=== PATIENT | male | born 1995 ===

== ENCOUNTER 2018-01-05 12:58 | Emergency (ER) | payer OTHER ==
--- NOTE | 2018-01-05 13:41 | UC ---
Throat Pain/Nasal Kel HPI - HPI Summary HPI Summary: The patient is a 22-year-old male that presents here with a five -day history headache and malaise...now with of sore throat and fever. States he was recently suspects exposed to strep throat. - History of Current Complaint Chief Complaint: UCRespiratory Stated Complaint: SORE THROAT Time Seen by Provider: 01/05/18 13:28 Hx Obtained From: Patient Onset/Duration: Gradual Onset, Lasting Days Severity: Moderate Pain Intensity: 6 Pain Scale Used: 0-10 Numeric Cough: None Associated Signs & Symptoms: Positive: Fever. Negative: Dysphagia, FB Sensation , Drooling, Wheezing, Hoarseness, Sinus Discomfort, Nasal Discharge, Vomiting, Rash - Epiglottits Risk Factors Epiglottis Risk Factors: Negative - Allergies/Home Medications Allergies/Adverse Reactions: Allergies Allergy/AdvReac Type Severity Reaction Status Date / Time No Known Allergies Allergy Verified 01/05/18 13:26 PMH/Surg Hx/FS Hx/Imm Hx Previously Healthy: Yes - Surgical History Surgical History: Yes Surgery Procedure, Year, and Place: appy - Family History Known Family History: Positive: Other - Grand father with espohageal CA Negative: Cardiac Disease, Hypertension, Diabetes - Social History Alcohol Use: Rare Substance Use Type: None Smoking Status (MU): Never Smoked Tobacco Review of Systems Constitutional: Fever, Chills Skin: Negative Eyes: Negative ENT: Sore Throat Respiratory: Negative Cardiovascular: Negative Gastrointestinal: Negative Genitourinary: Negative Motor: Negative Neurovascular: Negative Musculoskeletal: Negative Neurological: Negative Psychological: Negative All Other Systems Reviewed And Are Negative: Yes Physical Exam Triage Information Reviewed: Yes Appearance: Well-Appearing, No Pain Distress, Well-Nourished Vital Signs: Initial Vital Signs Temp 98.1 F 01/05/18 13:27 Pulse 79 01/05/18 13:27 Resp 16 01/05/18 13:27 BP 113/65 01/05/18 13:27 Pulse Ox 100 01/05/18 13:27 Vital Signs Reviewed: Yes Eyes: Positive: Conjunctiva Clear ENT: Positive: Hearing grossly normal, Tonsillar swelling, Tonsillar exudate. Negative: Nasal congestion, Nasal drainage, Trismus, Muffled voice, Hoarse voice Neck: Positive: Supple, Nontender, Enlarged Nodes @ - ant Respiratory: Positive: Lungs clear, Normal breath sounds, No respiratory distress Cardiovascular: Positive: RRR, No Murmur Musculoskeletal: Positive: ROM Intact, No Edema Neurological: Positive: Alert Skin Exam: Normal Re-Evaluation - Re-Evaluation First Eval Re-Evaluation Time: 13:55 Change: Unchanged - requests that he get re swabbed for strep Throat Pain/Nasal Course/Dx - Differential Dx/Diagnosis Provider Diagnoses: acute exudative tonsillitis Discharge - Sign-Out/Discharge Documenting (check all that apply): Patient Departure All imaging exams completed and their final reports reviewed: No Studies - Discharge Plan Condition: Stable Disposition: HOME Prescriptions: Cephalexin CAP* [Keflex CAP*] 500 mg PO BID #20 cap Patient Education Materials: Mononucleosis (ED), Tonsillitis (ED) Referrals: No Primary Care Phys,NOPCP [Primary Care Provider] - Additional Instructions: rest fluids tylenol or advil test for mono pending if (+) stop antibiotic recheck in 4 days if not better Culture pending test for STI pending - Billing Disposition and Condition Condition: STABLE Disposition: Home
[2018-01-05 14:09] VITALS: BP 113/65
[2018-01-05 18:49] LABS: Hematocrit 46 % (42-52); Hemoglobin 15.7 g/dl (14.0-18.0); Mean Corpuscular HGB Conc 35 g/dl (31-36); Mean Corpuscular Hemoglobin 30 pg (27-31); Mean Corpuscular Volume 87 fL (80-94); Mean Platelet Volume 10.2 um3 (7.4-10.4); Platelet Count 156 10^3/ul (150-450); Red Blood Count 5.26 10^6/ul (4.00-5.40); Red Cell Distribution Width 13 % (10.5-15); White Blood Count 10.4 10^3/ul (3.5-10.8)
[2018-01-05 19:13] LABS: ABS Basophils 0.1 10^3/ul (0-0.2); ABS Eosinophils 0 10^3/ul (0-0.6); ABS Lymphocytes 6.9 10^3/ul (1.0-4.8); ABS Monocytes 0.6 10^3/ul (0-0.8); ABS Neutrophils 2.7 10^3/ul (1.5-7.7)
[2018-01-05 19:17] LABS: ABS Basophils 0.1 10^3/ul (0-0.2); ABS Neutrophils 3.2 10^3/ul (1.5-7.7); Monocytes % 1 % (0-7)
--- NOTE | 2018-01-06 15:11 | UC ---
- Progress Note Progress Note: CBC reviewed elevated lymphs + mono neg GC/CH Okay to discontinue abx secretion precautions therapeutic support: motrin 600mg /apap 1000mg, gargle warm salt water, secretion precaution, f/u with [facility] - call today to schedule appt tre mcguire 01/06/2018 Re-Evaluation - Re-Evaluation First Eval Re-Evaluation Time: 13:55 Change: Unchanged - requests that he get re swabbed for strep Discharge - Sign-Out/Discharge Documenting (check all that apply): Post-Discharge Follow Up All imaging exams completed and their final reports reviewed: No Studies - Discharge Plan Condition: Stable Disposition: HOME Prescriptions: Cephalexin CAP* [Keflex CAP*] 500 mg PO BID #20 cap Patient Education Materials: Mononucleosis (ED), Tonsillitis (ED) Referrals: No Primary Care Phys,NOPCP [Primary Care Provider] - Additional Instructions: rest fluids tylenol or advil test for mono pending if (+) stop antibiotic recheck in 4 days if not better Culture pending test for STI pending - Billing Disposition and Condition Condition: STABLE Disposition: Home
== END 2018-01-05 15:02 | disposition home or self-care (01) ==
LOC: UCCORT 12:58
DX: J03.90 Acute tonsillitis, unspecified (principal)
CPT/HCPCS: 36415; 85025; 85060; 86308; 87070; 87491; 87591; 87651; 99202; G0463